=== PATIENT | female | born 1965 | race Two or more races ===

== ENCOUNTER 2021-01-11 10:49 | Outpatient (CLI) | payer OTHER | END 2021-01-11 10:50 | disposition home or self-care (01) | LOC: LAB 10:49 | PROVIDERS: ATTEND Obstetrics & Gynecology | DX: Z20.818 Contact with and (suspected) exposure to other bacterial communicable diseases (principal); Z20.828 Contact with and (suspected) exposure to other viral communicable diseases ==

== ENCOUNTER 2022-01-27 20:15 | Emergency (ER) | payer OTHER ==
[~2022-01-27] VITALS: Ht 165.1 cm; Wt 90.7 kg
[2022-01-27] MEDS ORDERED: KETO10TA2 PO (21:46)
== END 2022-01-27 22:46 | disposition home or self-care (01) ==
LOC: ER 20:15
DX: S92.352A Displaced fracture of fifth metatarsal bone, left foot, initial encounter for closed fracture (principal); W18.30XA Fall on same level, unspecified, initial encounter; Y93.89 Activity, other specified; Y92.018 Other place in single-family (private) house as the place of occurrence of the external cause; Y99.9 Unspecified external cause status

== ENCOUNTER 2022-03-12 12:32 | Outpatient (CLI) | payer OTHER ==
[~2022-03-12 12:32] MED LIST: KETO10TA2 PO
== END 2022-03-12 12:43 | disposition home or self-care (01) ==
LOC: RAD 12:32
PROVIDERS: ATTEND Orthopaedic Surgery
DX: S92.352A Displaced fracture of fifth metatarsal bone, left foot, initial encounter for closed fracture (principal)